=== PATIENT | male | born 1970 | race Caucasian/White ===

== ENCOUNTER 2018-02-27 15:17 | Emergency (ER) | payer OTHER ==
[2018-02-27] MEDS ORDERED: MORPHINE SULFATE 2 MG INJ IV ONE (15:22)
[2018-02-27] MEDS ORDERED: BABY ASPIRIN 81 MG CHEW PO ONE (15:22)
--- NOTE | 2018-02-27 15:25 | ERPHSYRPT ---
- History of Present Illness Time Seen by Provider: 02/27/18 15:24 Historian: patient Exam Limitations: no limitations Physician History: mild to mod tight anterior chest pain off and on for one day, hx cardiac stents , no injury, does not smoke Aspirin Treatment Today: provided by ED Allergies/Adverse Reactions: No Known Drug Allergies Allergy (Unverified 02/27/18 15:31) Home Medications: Alprazolam 1 mg [Xanax 1 mg] 1 mg PO DAILY 02/27/18 [History] Aspirin [Aspirin EC] 81 mg PO DAILY 02/27/18 [History] Carvedilol 6.25 mg PO BID 02/27/18 [History] Clopidogrel Bisulfate [Clopidogrel] 75 mg PO DAILY 02/27/18 [History] Cyclobenzaprine HCl 10 mg [Cyclobenzaprine 10 MG] 10 mg PO TID 02/27/18 [ History] Gabapentin 300 mg PO TID 02/27/18 [History] Gemfibrozil 600 mg PO BID 02/27/18 [History] Ibuprofen 600 mg PO TIDPRN PRN 02/27/18 [History] Lisinopril 20 mg PO DAILY 02/27/18 [History] Metformin HCl 500 mg PO TID 02/27/18 [History] Metoclopramide HCl [Reglan] 5 mg PO TID 02/27/18 [History] PARoxetine HCl [Paroxetine HCl] 20 mg PO DAILY 02/27/18 [History] Pravastatin Sodium 20 mg PO DAILY 02/27/18 [History] Tamsulosin HCl 0.4 mg PO DAILY 02/27/18 [History] glyBURIDE [Glyburide] 5 mg PO DAILY 02/27/18 [History] - Review of Systems Constitutional: No Fever Eyes: No Eye Redness Ears, Nose, & Throat: No Epistaxis Respiratory: No Dyspnea Cardiac: Chest Pain Abdominal/Gastrointestinal: No Abdominal Pain Musculoskeletal: No Back Pain Skin: No Rash Neurological: No Dizziness - Nursing Vital Signs Nursing Vital Signs: Initial Vital Signs Temperature 98.5 F 02/27/18 15:24 Pulse Rate 66 02/27/18 15:24 Respiratory Rate 16 02/27/18 15:24 Blood Pressure 152/91 02/27/18 15:24 O2 Sat by Pulse Oximetry 98 02/27/18 15:24 Pain Scale Pain Intensity 8 - Physical Exam General Appearance: no apparent distress Eye Exam: PERRL/EOMI Ears, Nose, Throat Exam: moist mucous membranes Neck Exam: normal inspection Respiratory Exam: normal breath sounds Cardiovascular Exam: regular rate/rhythm Gastrointestinal/Abdomen Exam: soft, No tenderness Extremity Exam: normal inspection Neurologic Exam: alert, oriented x 3, cooperative, normal mood/affect Skin Exam: normal color, warm, dry - Course Nursing assessment & vital signs reviewed: Yes EKG Interpreted by Me: Other (nsr 61 no stemi) - Radiology Exams Chest X-ray Interpretation: Discussed w/ radiologist, Negative Ordered Tests: Active Orders 24 hr Category Date Time Status Electronic Induction Hardener STAT Care 02/27/18 15:23 Active IV Insertion STAT Care 02/27/18 15:22 Active CHEST 1 VIEW (PORTABLE) Stat Exams 02/27/18 15:22 Completed CBC W DIFF Stat Lab 02/27/18 15:29 Completed CMP Stat Lab 02/27/18 15:29 Completed TROPONIN Q3H Lab 02/27/18 15:30 Completed TROPONIN Q3H Lab 02/27/18 18:30 Ordered TROPONIN Q3H Lab 02/27/18 21:30 Ordered TROPONIN Q3H Lab 02/28/18 00:30 Ordered TROPONIN Q3H Lab 02/28/18 03:30 Ordered Medication Summary Discontinued Medications Generic Name Dose Route Start Last Admin Trade Name Anatoly PRN Reason Stop Dose Admin Aspirin 324 mg 02/27/18 15:22 02/27/18 15:33 Baby Aspirin 81 Mg Chew PO 02/27/18 15:23 324 mg STAT ONE Administration Aspirin Confirm 02/27/18 15:30 Baby Aspirin 81 Mg Chew Administered 02/27/18 15:31 Dose 324 mg .ROUTE .STK-MED ONE Morphine Sulfate 2 mg 02/27/18 15:22 02/27/18 15:33 Morphine Sulfate 2 Mg Inj IV 02/27/18 15:23 2 mg STAT ONE Administration Morphine Sulfate Confirm 02/27/18 15:30 Morphine Sulfate 2 Mg Inj Administered 02/27/18 15:31 Dose 2 mg .ROUTE .STK-MED ONE Lab/Rad Data: Laboratory Result Diagrams 02/27/18 15:29 02/27/18 15:29 Laboratory Results 07/17/18 07/17/18 07/17/18 Range/Units 15:30 15:29 15:29 WBC 10.8 H (4.0-10.5) K/mm3 RBC 5.09 (4.1-5.6) M/mm3 Hgb 16.0 (12.5-18.0) gm/dl Hct 47.1 (42-50) % MCV 92.5 (78-100) fl MCH 31.4 (26-32) pg MCHC 34.0 (32-36) g/dl RDW 13.2 (11.5-14.0) % Plt Count 251 (150-450) K/mm3 MPV 9.9 H (6-9.5) fl Gran % 73.4 H (36.0-66.0) % Eos # (Auto) 0.08 (0-0.5) Absolute Lymphs (auto) 2.26 (1.0-4.6) Absolute Monos (auto) 0.52 (0.0-1.3) Lymphocytes % 20.9 L (24.0-44.0) % Monocytes % 4.8 (0.0-12.0) % Eosinophils % 0.7 (0.00-5.0) % Basophils % 0.2 (0.0-0.4) % Absolute Granulocytes 7.92 H (1.4-6.9) Basophils # 0.02 (0-0.4) Sodium 140 (137-145) mmol/L Potassium 4.1 (3.5-5.1) mmol/L Chloride 107 (98-107) mmol/L Carbon Dioxide 24 (22-30) mmol/L Anion Gap 13.1 (5-15) MEQ/L BUN 17 (9-20) mg/dL Creatinine 0.65 L (0.66-1.25) mg/dL Estimated GFR > 60.0 ML/MIN Glucose 143 H (74-106) mg/dL Calcium 9.3 (8.4-10.2) mg/dL Total Bilirubin 0.90 (0.2-1.3) mg/dL AST 23 (17-59) U/L ALT 36 (0-50) U/L Alkaline Phosphatase 81 (38-126) U/L Troponin I < 0.012 (0.000-0.034) ng/mL Serum Total Protein 7.4 (6.3-8.2) g/dL Albumin 4.5 (3.5-5.0) g/dL - Progress Progress: improved Air Movement: good Progress Note: 02/27/18 17:43 Dr Laura asked to take his pt to [facility], Dr Pham agrees, Dr Moody accepts transfer to [facility] ER Counseled pt/family regarding: lab results, diagnosis, rad results - Departure Time of Disposition: 17:44 Departure Disposition: Transfer Clinical Impression: Chest pain Qualifiers: Chest pain type: precordial pain Qualified Code(s): R07.2 - Precordial pain Condition: Stable Critical Care Time: No Referrals: LYLE GREGORY [Primary Care Provider] -
[2018-02-27] MEDS ORDERED: BABY ASPIRIN 81 MG CHEW ONE (15:30)
[2018-02-27] MEDS ORDERED: MORPHINE SULFATE 2 MG INJ ONE (15:30)
[2018-02-27 15:36] LABS: BASOPHIL % 0.2 % (0.0-0.4); Basophil (Absolute #) 0.02 (0-0.4); Eosinophil % 0.7 % (0.00-5.0); Eosinophil (Absolute #) 0.08 (0-0.5); Granulocyte Absolute (ANC) 7.92 (1.4-6.9); Granulocytes % 73.4 % (36.0-66.0); Hematocrit 47.1 % (42-50); Lymphocyte (Absolute #) 2.26 (1.0-4.6); Lymphocytes % 20.9 % (24.0-44.0); Mean Cell Volume 92.5 fl (78-100); Mean Corpuscular Hemoglobin 31.4 pg (26-32); Mean Platelet Volume 9.9 fl (6-9.5); Monocyte (Absolute #) 0.52 (0.0-1.3); Monocytes % 4.8 % (0.0-12.0); Platelet Count 251 K/mm3 (150-450); Red Blood Count 5.09 M/mm3 (4.1-5.6); Red Cell Distribution Width 13.2 % (11.5-14.0); White Blood Count 10.8 K/mm3 (4.0-10.5)
--- NOTE | 2018-02-27 15:45 | XRAY ---
Indication: Chest tightness, short of breath, and weakness. Comparison: None Portable apical lordotic chest demonstrates small hiatal hernia. Remaining heart and lungs normal. Bony thorax intact with minimal degenerative changes.
[2018-02-27 15:48] LABS: ALBUMIN 4.5 g/dL (3.5-5.0); ALKALINE PHOSPHATASE 81 U/L (38-126); ANION GAP 13.1 MEQ/L (5-15); BLOOD UREA NITROGEN 17 mg/dL (9-20); CHLORIDE 107 mmol/L (98-107); Calcium 9.3 mg/dL (8.4-10.2); Carbon Dioxide 24 mmol/L (22-30); Creatinine 1 0.65 mg/dL (0.66-1.25); Glucose 143 mg/dL (74-106); Potassium 4.1 mmol/L (3.5-5.1); SGOT/AST 23 U/L (17-59); SGPT/ALT 36 U/L (0-50); SODIUM 140 mmol/L (137-145); Total Protein 7.4 g/dL (6.3-8.2)
[2018-02-27 16:45] VITALS: O2SAT 97
[2018-02-27 18:23] VITALS: BP 128/78; PULSE 58
== END 2018-02-27 18:27 | disposition short-term general hospital (02) ==
LOC: ED 15:17
DX: R07.2 Precordial pain (principal); Z79.899 Other long term (current) drug therapy
CPT/HCPCS: 36000; 36415; 71045; 80053; 84484; 85025; 93005; 93041; 96374; 99285; J2270; A9270-GY